=== PATIENT | female | born 1985 | race Hispanic/Latino ===

== ENCOUNTER 2018-04-05 22:31 | Emergency (ER) | payer BC, OTHER ==
[2018-04-05 23:25] LABS: BASOPHILS % (AUTO) 0.4 % (0.0-5.0); EOSINOPHILS % (AUTO) 1.2 % (0.0-8.0); HEMATOCRIT 39.4 % (36-48); LYMPHOCYTES % (AUTO) 28.5 % (21.0-51.0); MEAN CORPUSCULAR HEMOGLOBIN 32.3 pg (27.0-33.0); MEAN CORPUSCULAR HGB CONC 35.1 g/dL (32.0-36.0); MEAN CORPUSCULAR VOLUME 91.9 fL (79-99); MONOCYTES % (AUTO) 9.5 % (3.0-13.0); NEUTROPHILS % (AUTO) 60.4 % (40.0-77.0); PLATELET COUNT (AUTO) 344 K/uL (130-400); RED BLOOD CELL COUNT(AUTO) 4.29 MIL/uL (4.00-5.50); RED CELL DISTRIBUTION WIDTH 13.1 % (11.0-15.5); WHITE BLOOD COUNT (AUTO) 8.8 K/uL (4.8-10.8)
[2018-04-05 23:37] LABS: CREATININE 0.6 mg/dL (0.5-1.5)
[2018-04-05 23:40] LABS: INR 1.01 (0.85-1.15); PARTIAL THROMBOPLASTIN TIME 30.6 SEC (26.3-35.5); PROTHROMBIN TIME 10.6 SEC (9.6-11.6)
[2018-04-05 23:42] LABS: ALBUMIN 3.6 g/dL (3.5-5.0); BILIRUBIN,TOTAL 0.4 mg/dL (0.2-1.0); TOTAL PROTEIN, SERUM 7.4 g/dL (6.0-8.3)
[2018-04-05] MEDS ORDERED: ONDANSETRON HCL MDV 20ML 2 MG/ML VIAL ONE (23:52)
[2018-04-05] MEDS ORDERED: MORPHINE SULFATE 4 MG/1ML SYG ONE (23:52)
[2018-04-06 00:06] LABS: BILIRUBIN,URINE Negative (NEGATIVE); COLOR,URINE Yellow (YELLOW); GLUCOSE, URINE (UA) Negative (NEGATIVE); KETONES,URINE Negative (NEGATIVE); LEUKOCYTE ESTERASE ,URINE Negative (NEGATIVE); NITRATE,URINE Negative (NEGATIVE); OCCULT BLOOD,URINE Negative (NEGATIVE); PH,URINE 7.5 (5.0-8.0); PROTEIN,URINE Negative (NEGATIVE)
[2018-04-06 00:08] LABS: APPEARANCE,URINE CLEAR (CLEAR)
[2018-04-06] MEDS ORDERED: IOPAMIDOL-370 75 ML VIAL IV ONE (00:45)
[2018-04-06] MEDS ORDERED: PROMETHAZINE HCL 25 MG/ML 1ML AMPULE IM ONE (01:29)
== END 2018-04-06 02:18 | disposition home or self-care (01) ==
LOC: EDH 22:31
DX: K64.9 Unspecified hemorrhoids (principal); K62.89 Other specified diseases of anus and rectum; Z98.890 Other specified postprocedural states
CPT/HCPCS: 36415; 74177; 80053; 81003; 82270; 83690; 84703; 85025; 85610; 85730; 96372; 96374; 96375; 99285; J2270; J2550; Q9967

== ENCOUNTER 2019-07-29 11:55 | Observation (INO) | payer BC ==
[~2019-07-29] VITALS: Ht 154.9 cm; Wt 60.3 kg
[2019-07-29] MEDS ORDERED: PHARMACY COMMUNICATION MISC SCH (13:30)
[2019-07-29 15:23] LABS: CREATININE 0.6 mg/dL (0.5-1.5); POTASSIUM 4.2 mmol/L (3.5-5.1)
[2019-07-29] MEDS: CELESTONE SOLUSPAN 6 MG/ML 5ML VIAL IM SCH (15:23)
[2019-07-29 15:27] LABS: ALBUMIN 2.3 g/dL (3.5-5.0); BILIRUBIN,TOTAL 0.3 mg/dL (0.2-1.0); INR 0.92 (0.85-1.15); PARTIAL THROMBOPLASTIN TIME 29.6 SEC (26.3-35.5); PROTHROMBIN TIME 9.7 SEC (9.6-11.6); TOTAL PROTEIN, SERUM 6.3 g/dL (6.0-8.3); URIC ACID 4.9 mg/dL (2.6-7.2)
[2019-07-29 15:37] LABS: APPEARANCE,URINE Cloudy (CLEAR); BILIRUBIN,URINE Negative (NEGATIVE); COLOR,URINE Yellow (YELLOW); GLUCOSE, URINE (UA) Negative (NEGATIVE); KETONES,URINE Negative (NEGATIVE); LEUKOCYTE ESTERASE ,URINE Large (NEGATIVE); NITRATE,URINE Negative (NEGATIVE); OCCULT BLOOD,URINE Negative (NEGATIVE); PROTEIN,URINE Trace mg/dL (NEGATIVE)
[2019-07-29 16:06] LABS: BACTERIA,URINE Moderate /HPF (None Seen); RBC,URINE 0-1 /HPF (0-1)
[2019-07-29 16:07] LABS: MUCUS,URINE Moderate LPF (None Seen)
[2019-07-29] MEDS ORDERED: ACETAMINOPHEN 325 MG TAB PO PRN (16:15)
[2019-07-29] MEDS ORDERED: MAG HYDROX/AL HYDROX/SIMETH ES 30 ML SUSP UDCUP PO SCH (16:15)
[2019-07-29] MEDS: LACTATED RINGERS 1000ML 1,000 ML IV PRN ×2 (16:32→23:35)
[2019-07-29 17:08] VITALS: BP 128/75
[2019-07-29] MEDS ORDERED: PREN1COM14 PO (17:42)
[2019-07-29] MEDS ORDERED: DOCU-116 PO (17:42)
[2019-07-29] MEDS ORDERED: CEFTRIAXONE SODIUM 1 GM IVP SCH (18:15)
[2019-07-29 19:10] VITALS: BP 130/75
--- NOTE | 2019-07-29 19:45 | NUR ---
: HEART TONE by Doppler Baby A 145; Baby B is 140. Continued on 24 hour urine collection, patient reminded to collect urine till tomorrow at 1400. Addendum: 07/29/19 at 2350 by OZZY VELAZQUEZ RN RN Amended: Links added.
[2019-07-29 23:20] VITALS: BP 131/73
[2019-07-30 03:05] VITALS: BP 128/69
[2019-07-30 07:21] VITALS: BP 127/67
[2019-07-30] MEDS: LACTATED RINGERS 1000ML 1,000 ML IV PRN (07:25)
--- NOTE | 2019-07-30 07:55 | NUR ---
PATIENT PLACED ON NST AT THIS TIME. ESTHELA CHI AT BEDSIDE. EDEMA +2 TO BILATERAL FEET. ADVISED PATIENT TO CALL WITH ANY NEEDS OR CONCERNS. CALL LIGHT LEFT IN REACH.
--- NOTE | 2019-07-30 08:20 | NUR ---
NST NST COMPLETED AT THIS TIME. PATIENT ACKNOWLEDGES MOVEMENT.
[2019-07-30] MEDS ORDERED: PRENATAL VITAMIN RX TABLET PO SCH (09:00)
--- NOTE | 2019-07-30 10:55 | NUR ---
MD DR. GILMAN ROUNDING ON PATIENT AT THIS TIME. POC DISCUSSED WITH PATIENT. OKAY FOR D/C ONCE 24 HOUR URINE IS COMPLETED.
[2019-07-30 11:14] VITALS: BP 124/84
--- NOTE | 2019-07-30 11:30 | NUR ---
NST CHARGE NURSE ESTHELA BRAXTON NOTIFIED OF NST STRIP.
--- NOTE | 2019-07-30 11:40 | NUR ---
REPORT REPORT GIVEN TO ESTHELA PRADO FOR CONTINUITY OF CARE.
[2019-07-30] MEDS: CELESTONE SOLUSPAN 6 MG/ML 5ML VIAL IM SCH (14:06)
--- NOTE | 2019-07-30 14:40 | NUR ---
DISCHARGE PT STABLE, NO PAIN, NO COMPLAINTS; PT LEFT UNIT, VIA WHEELCHAIR, STILL , ACCOMPANIED BY RN AND SPOUSE CARRYING ALL PERSONAL BELONGINGS AND INSTRUCTIONS; PT LEFT FACILITY IN PERSONAL VEHICLE
[2019-07-30 15:30] LABS: CREATININE,SERUM FOR CRCL 0.6 mg/dL (0.6-1.3)
[2019-07-30 15:45] LABS: COLLECTION PERIOD,URINE 24 HR; TOTAL VOLUME 24HRS,URINE 2200 mL
[2019-07-30 16:11] LABS: TPROTEIN TIMED,URINE 15 mg/dL; TPROTEIN U,24HR CALC 330 mg/24HR (0-165)
== END 2019-07-30 14:40 | disposition home or self-care (01) ==
LOC: WSH 11:55 → LDH 15:57 → WSH 16:55
PROVIDERS: ADMIT Specialist; ATTEND Specialist
DX: O10.913 Unspecified pre-existing hypertension complicating pregnancy, third trimester (principal); O12.03 Gestational edema, third trimester; O30.003 Twin pregnancy, unspecified number of placenta and unspecified number of amniotic sacs, third trimester; O26.893 Other specified pregnancy related conditions, third trimester; H53.8 Other visual disturbances; Z3A.34 34 weeks gestation of pregnancy
CPT/HCPCS: 36415; 59025; 76819; 80053; 81001; 82575; 84156; 84550; 85384; 85610; 85730; 96372 ×2; 96374; G0378 ×25; J0696; J0702 ×3; J7120 ×2; 96360; 96361

== ENCOUNTER 2024-02-05 17:40 | Emergency (ER) | payer BC ==
[~2024-02-05] VITALS: Ht 154.9 cm; Wt 75.7 kg
[~2024-02-05 17:40] MED LIST: DOCU-116 PO; PREN1COM14 PO
[2024-02-05 17:41] VITALS: BP 125/80
[2024-02-05] MEDS: GUAIFENESIN 600 MG TABLET.ER PO SCH (18:43)
[2024-02-05] MEDS: IPRATROPIUM 0.5 MG/2.5 ML INH IH SCH (19:30)
[2024-02-05 19:31] VITALS: PULSE 88; RESP 16
[2024-02-05] MEDS ORDERED: [UNRECOGNIZED DRUG - CODE] PO (20:14)
[2024-02-05] MEDS ORDERED: DEXAMETHASONE SOD PHOSPHATE 4 MG/ML 1ML VIAL IM SCH (20:30)
== END 2024-02-05 20:39 | disposition home or self-care (01) ==
LOC: EDH 17:40
DX: J06.9 Acute upper respiratory infection, unspecified (principal); R05.9 Cough, unspecified; Z90.49 Acquired absence of other specified parts of digestive tract
CPT/HCPCS: 71045; 94640